=== PATIENT | female | born 2000 | race Caucasian/White ===

== ENCOUNTER 2022-01-13 12:57 | Emergency (ER) | payer BC ==
[2022-01-13 13:05] VITALS: RESP 18; TEMP 97.9; BMI 29.2
[2022-01-13 13:58] LABS: HEMATOCRIT 40.7 % (32.4-45.2); HEMOGLOBIN 13.8 G/dL (10.7-15.3); MCH 28.6 pg (25.7-33.7); MCHC 33.9 g/dl (32.0-36.0); MEAN CELL VOLUME 84.3 fl (80-96); MEAN PLT VOLUME 9.9 fl (7.5-11.1); RBC 4.83 10^6/uL (3.60-5.2); WHITE BLOOD COUNT 8.7 10^3/uL (4.0-10.8)
[2022-01-13 14:02] LABS: ALBUMIN 4.3 g/dl (3.4-5.0); BILIRUBIN,TOTAL 0.8 mg/dl (0.2-1); CALCIUM 9.4 mg/dl (8.5-10); CREATININE 0.7 mg/dl (0.55-1.3); TOT PROT 7.1 g/dl (6.4-8.2)
[2022-01-13 14:17] LABS: PLATELET ESTIMATE ADEQUATE
[2022-01-13 17:04] VITALS: BP 110/57; PULSE 68
== END 2022-01-13 17:00 | disposition home or self-care (01) ==
LOC: FER 12:57
DX: R07.89 Other chest pain (principal)
CPT/HCPCS: 36415; 71045-TC-FY; 80053; 84703; 85027; 85379; 93005; 99285-25